=== PATIENT | male | born 1975 | race Caucasian/White ===

== ENCOUNTER 2018-02-17 07:02 | Inpatient (IN) | payer BC ==
[2018-02-17] MEDS ORDERED: Fentanyl 250 MCG/5 ML VIAL ONE (08:18)
[2018-02-17] MEDS ORDERED: Midazolam HCl 5 mg/5 ml Vial ONE (08:18)
[2018-02-17 08:45] LABS: #Eosinphils 0.1 thou/uL (0.0-0.7); #Lymphocytes 1.6 thou/uL (1.20-3.40); #Monocytes 0.4 thou/uL (0.11-0.59); #Neutrophils 3.4 thou/uL (1.40-6.50); %Basophils 0.9 % (0.0-1.0); %Eosinophils 1.1 % (0.0-10.0); %Lymphocytes 28.7 % (21.0-51.0); %Monocytes 7.8 % (0.0-10.0); %Neutrophils 61.5 % (42.0-75.0); Mean Corpuscular HGB CONC 34.6 g/dL (32.0-36.0); Mean Corpuscular Hemoglobin 30.4 pg (27.0-31.0); Mean Corpuscular Volume 88.1 fL (78.0-98.0); Mean Platelet Volume 9.4 fL (7.4-10.4); Platelet Count 171 thou/uL (130-400); RBC Distribution Width 11.7 % (11.5-14.5); Red Blood Cell (RBC) Count 4.92 mill/uL (4.70-6.10); White Blood Cell (WBC) Count 5.5 thou/uL (4.8-10.8)
[2018-02-17] MEDS ORDERED: Heparin 10,000 UNITS/1 ML VIAL 30,000 UNITS in Sodium Chloride 0.9% 1,000 ML FS SCH (08:45)
[2018-02-17 08:50] LABS: PTT 28.7 SEC (22.9-36.1); Prothrombin Time 13.7 SEC (12.0-14.7)
[2018-02-17 09:02] LABS: Anion Gap 11 mmol/L (10-20); BUN (Urea Nitrogen) 11 mg/dL (8.9-20.6); Calc. Creatinine Clearance 0 mL/min (70-130); Calcium 10.4 mg/dL (7.8-10.44); Carbon Dioxide 28 mmol/L (22-29); Chloride 104 mmol/L (98-107); Estimated GFR-MDRD 71; Glucose 115 mg/dL (70-105); Potassium 3.9 mmol/L (3.5-5.1); Sodium 139 mmol/L (136-145)
[2018-02-17] MEDS ORDERED: CEFAZOLIN/Water 2 GM/20 ML SYRINGE ONE (09:04)
[2018-02-17] MEDS ORDERED: Midazolam HCl 2 mg/2 ml Vial ONE ×2 (09:33→13:05)
--- NOTE | 2018-02-17 09:35 | RAD ---
CHEST TWO VIEW: History: Pre op for coronary artery bypass graft. Comparison: None. FINDINGS: Lungs are clear. No pneumothorax or effusion. Cardiac silhouette and mediastinal contours appear with in normal limits. No acute osseous abnormality. IMPRESSION: No acute intrathoracic abnormality. POS: [facility]
--- NOTE | 2018-02-17 13:02 | OP ---
DATE OF PROCEDURE: 02/17/2018 PREOPERATIVE DIAGNOSES: Coronary artery disease/status post-myocardial infarction/hyperlipidemia. POSTOPERATIVE DIAGNOSES: Coronary artery disease/status post-myocardial infarction/hyperlipidemia. PROCEDURE: Coronary artery bypass grafting x 2: 1) Left internal mammary artery to 2.0 mm distal LAD - good conduit and target. 2) Reverse saphenous vein to 3.0 mm OM - good conduit and target. SURGEON: Dr. Ata Calle and Dr. Stephon Cooney. ANESTHESIA: General endotracheal, Dr. Lisette Christianson. PUMP TIME: 37 minutes. CROSS-CLAMP TIME: Twenty minutes. LOW CORE TEMP: 32-degree Celsius. APPLIANCE INSTALLER: JR Chery. DRAINS: 24-Urdu chest tubes x2. DRIPS: None. TRANSFUSIONS: None. PROCEDURE IN DETAIL: After consent was obtained, the patient was brought to the operating room and placed in the supine position on the operating room table. Appropriate anesthetic monitor was placed and general endotracheal anesthesia induced. Chest, abdomen, and legs were prepped and draped in usual sterile fashion. Greater saphenous vein was harvested from the left ankle. Wounds irrigated and closed in layers. Median sternotomy was performed. Left internal mammary artery was harvested as a pedicle graft. The patient was systemically heparinized. Distal pedicle was divided and infused with papaverine. Thymic fat and pericardium were divided with electrocautery. Pericardial stay sutures were placed. Aortic and atrial cannulation was performed. After adequate heparinization, retrograde prime was performed. The patient was placed on cardiopulmonary bypass. Distal targets were marked. Aortic cross-clamp was applied and antegrade sanguinous cardioplegic arrest obtained. One liter of antegrade cold cardioplegia was given. Topical cold solution was used. Reverse saphenous vein was anastomosed to the OM in end to side fashion with running 7-0 Prolene suture. Anastomosis tested and was hemostatic. Mammary artery was brought through a window in the pericardium and anastomosed to the distal LAD in end to side fashion with running 7-0 Prolene suture. On release of mammary clamps, good hooding in the anastomosis and good distal flow. Pedicle screw with interrupted 6-0 Prolene suture. Cross-clamp was removed and partial occluding clamp placed. Saphenous vein was anastomosed to a punch site in the aorta with running 6-0 Prolene suture. Partial occluding clamp was removed and grafts deaired. Anastomoses were inspected for hemostasis, which was good. The patient was warmed and weaned from cardiopulmonary bypass. After resumption of sinus rhythm, good hemodynamics, and temperature greater than 36.5, bypass was discontinued. Transfusions were given. Protamine was administered. Decannulation was performed and pursestring sutures secured. 24-Urdu chest tubes were placed in the mediastinum. Vancomycin paste was placed on the sternal edges. After adequate hemostasis had been obtained, sternum was closed with #7 wire. Sternum was treated with platelet-rich plasma and wires twisted. Wounds were irrigated, treated with platelet-poor plasma, and closed in multiple layers. Dermabond was applied to all skin incisions. Needle, sponge, and instrument counts were all reported as correct at the end of the procedure. The patient tolerated the procedure well, and was transferred to the Intensive Care Unit in stable, but critical condition. LOUISE
[2018-02-17 13:05] LABS: pH, Arterial 7.42 (7.35-7.45)
[2018-02-17 13:06] LABS: ALV-art Gradient 137.825 (0-20); Actual Bicarbonate (HCO3a) 21.2 mEq/L (22-28); Base Excess (BEa) -2.6 mEq/L (-2.0 to +3.0); CO2 Tension 33.9 mmHg (35.0-45.0); Calcium, Ionized 1.2 mmol/L (1.12-1.30); Hemoglobin (Hb) 12.7 g/dL (14.0-18.0); Puncture Site ALINE
[2018-02-17] MEDS ORDERED: Promethazine HCl 25 MG/ML VIAL IM PRN (13:20)
[2018-02-17] MEDS ORDERED: Magnesium 2 GM/NS 0.9% 100 ML 2 GM in Premix Bag 1 BAG IVPB SCH (13:20)
[2018-02-17] MEDS ORDERED: Post-Op Insulin Drip Protocol IVPB ONE (13:20)
[2018-02-17] MEDS ORDERED: Bisacodyl 5 MG TAB PO PRN (13:20)
[2018-02-17] MEDS ORDERED: hydrALAZINE 20 MG/ML VIAL SLOW IVP PRN (13:20)
[2018-02-17] MEDS ORDERED: Potassium Chloride 20 MEQ/100 ML PREMIX BAG IVPB PRN (13:20)
[2018-02-17] MEDS ORDERED: Mag-Al 1200 mg/1200 mg/30 ML UDCUP PO PRN (13:20)
[2018-02-17] MEDS ORDERED: Guaifenesin DM 100-10/5 ML UDCUP PO PRN (13:20)
[2018-02-17] MEDS ORDERED: HYDROcodone/Acetaminophen 5/325 mg Tablet PO PRN ×2 (13:20)
[2018-02-17] MEDS ORDERED: Nitroglycerin 50 MG/250 ML BOT 250 ML IVPB PRN (13:20)
[2018-02-17] MEDS ORDERED: Acetaminophen 325 MG TAB PO PRN (13:20)
[2018-02-17] MEDS ORDERED: Fentanyl 100 MCG/2 ML VIAL SLOW IVP PRN (13:20)
[2018-02-17] MEDS ORDERED: Phenylephrine 10 MG/NS 250 ML 250 ML IVPB PRN (13:20)
[2018-02-17] MEDS ORDERED: Bisacodyl 10 MG SUPP PR PRN (13:20)
[2018-02-17 13:28] LABS: #Eosinphils 0.1 thou/uL (0.0-0.7); #Lymphocytes 2.4 thou/uL (1.20-3.40); #Monocytes 0.7 thou/uL (0.11-0.59); #Neutrophils 9.1 thou/uL (1.40-6.50); %Basophils 0.4 % (0.0-1.0); %Eosinophils 1.2 % (0.0-10.0); %Lymphocytes 19.3 % (21.0-51.0); %Monocytes 5.7 % (0.0-10.0); %Neutrophils 73.4 % (42.0-75.0); Hemoglobin 12.4 g/dL (14.0-18.0); Mean Corpuscular HGB CONC 35.8 g/dL (32.0-36.0); Mean Corpuscular Hemoglobin 31.5 pg (27.0-31.0); Mean Corpuscular Volume 88.2 fL (78.0-98.0); Mean Platelet Volume 9.8 fL (7.4-10.4); Platelet Count 140 thou/uL (130-400); RBC Distribution Width 11.7 % (11.5-14.5); Red Blood Cell (RBC) Count 3.93 mill/uL (4.70-6.10); White Blood Cell (WBC) Count 12.3 thou/uL (4.8-10.8)
[2018-02-17] MEDS ORDERED: Dextrose 5% in Water 1,000 ML IV PRN (13:31)
[2018-02-17] MEDS ORDERED: Dextrose 50% Abboject 50 ML SYRINGE SLOW IVP PRN (13:31)
[2018-02-17] MEDS ORDERED: Insulin Regular 300 UNITS/3 ML VIAL SC PRN (13:31)
[2018-02-17 13:34] LABS: INR-International Normal Ratio 1.4; PTT 26.3 SEC (22.9-36.1)
[2018-02-17] MEDS: Ondansetron HCl/PF 4 MG/2 ML Vial IVP PRN (13:36)
[2018-02-17] MEDS: D5 1/2 NS w/20 mEq KCL 1,000 ML IV SCH (13:36)
[2018-02-17 13:37] LABS: Anion Gap 9 mmol/L (10-20); BUN (Urea Nitrogen) 9 mg/dL (8.9-20.6); Calc. Creatinine Clearance 0 mL/min (70-130); Calcium 8.9 mg/dL (7.8-10.44); Carbon Dioxide 22 mmol/L (22-29); Chloride 110 mmol/L (98-107); Estimated GFR-MDRD Greater than 90; Glucose 132 mg/dL (70-105); Potassium 4.1 mmol/L (3.5-5.1); Sodium 137 mmol/L (136-145)
[2018-02-17] MEDS: Fentanyl 100 MCG/2 ML VIAL SLOW IVP PRN ×2 (15:07→19:28)
[2018-02-17] MEDS ORDERED: Protamine Sulfate 250 MG/25 ML VIAL ONE (15:19)
[2018-02-17] MEDS ORDERED: Heparin 5,000 UNITS/ML VIAL ONE (15:19)
[2018-02-17] MEDS ORDERED: Vecuronium 10 MG VIAL ONE (15:19)
[2018-02-17] MEDS ORDERED: Thrombin 5000 UNITS/5 ML VIAL ONE (15:19)
[2018-02-17] MEDS ORDERED: PROPOFOL 200 MG/20 ML VIAL ONE (15:19)
[2018-02-17] MEDS ORDERED: Mannitol 12.5 GM/50 ML ONE (15:19)
[2018-02-17] MEDS ORDERED: Aminocaproic Acid 5 GM/20 ML VIAL ONE (15:19)
[2018-02-17] MEDS ORDERED: Papaverine 60 MG/2 ML VIAL ONE (15:19)
[2018-02-17] MEDS ORDERED: Heparin 30,000 units/30 ml VIAL ONE (15:19)
[2018-02-17] MEDS ORDERED: Calcium Chloride 1 GM/10 ML Abboject SYRINGE ONE (15:19)
[2018-02-17] MEDS: DOPamine 400 MG/D5W 250 ML 250 ML IVPB PRN (15:23)
[2018-02-17 15:24] VITALS: BMI 35.5
--- NOTE | 2018-02-17 15:24 | RAD ---
RADIOGRAPH CHEST 1 VIEW: DATE: 02-17-18 TIME: 12:55 P.M. HISTORY: 42-year-old male status post open heart surgery. FINDINGS: The image is overexposed. There is no evidence of consolidation. The lateral costophrenic angles ar e sharp. Endotracheal tube distal tip overlying mid thoracic trachea. Sternotomy wires. Left basilar and left paramedian chest tubes. IMPRESSION: 1) Limited study. 2) No acute pulmonary findings. 3) Status post open heart surgery with tubes as mentioned above. genny POS: [facility]
[2018-02-17] MEDS: Ketorolac Tromethamine 30 MG/ML VIAL IVP SCH (16:23)
[2018-02-17] MEDS: CEFAZOLIN/Water 2 GM/20 ML SYRINGE SLOW IVP SCH (16:27)
[2018-02-17 17:19] LABS: Actual Bicarbonate (HCO3a) 20.1 mEq/L (22-28); Base Excess (BEa) -4.6 mEq/L (-2.0 to +3.0); CO2 Tension 36.4 mmHg (35.0-45.0); O2 Tension (PaO2) 142.6 mmHg (80.0-100.0); pH, Arterial 7.36 (7.35-7.45)
[2018-02-17 17:20] LABS: Calcium, Ionized 1.2 mmol/L (1.12-1.30); Puncture Site ALINE
[2018-02-17 18:54] LABS: Hemoglobin 12.7 g/dL (14.0-18.0)
[2018-02-17 19:11] LABS: Potassium 4.2 mmol/L (3.5-5.1)
[2018-02-17] MEDS: Famotidine/PF 20 mg/2ml Vial SLOW IVP SCH (20:17)
[2018-02-18] MEDS: Ketorolac Tromethamine 30 MG/ML VIAL IVP SCH ×5 (00:16→23:59)
[2018-02-18] MEDS: CEFAZOLIN/Water 2 GM/20 ML SYRINGE SLOW IVP SCH ×2 (00:16→08:23)
[2018-02-18] MEDS: Hetastarch 6% 500 ML 500 ML IVPB PRN ×2 (03:30→08:21)
[2018-02-18 04:33] LABS: #Lymphocytes 1.3 thou/uL (1.20-3.40); #Neutrophils 7.3 thou/uL (1.40-6.50); %Basophils 0.4 % (0.0-1.0); %Eosinophils 0.1 % (0.0-10.0); %Lymphocytes 13.1 % (21.0-51.0); %Monocytes 10.4 % (0.0-10.0); %Neutrophils 76.1 % (42.0-75.0); Hemoglobin 11.7 g/dL (14.0-18.0); Mean Corpuscular Hemoglobin 30.9 pg (27.0-31.0); Mean Corpuscular Volume 88.1 fL (78.0-98.0); Mean Platelet Volume 9.8 fL (7.4-10.4); Platelet Count 151 thou/uL (130-400); RBC Distribution Width 11.8 % (11.5-14.5); Red Blood Cell (RBC) Count 3.78 mill/uL (4.70-6.10); White Blood Cell (WBC) Count 9.6 thou/uL (4.8-10.8)
[2018-02-18 04:53] LABS: Anion Gap 12 mmol/L (10-20); BUN (Urea Nitrogen) 11 mg/dL (8.9-20.6); Calc. Creatinine Clearance 176 mL/min (70-130); Carbon Dioxide 22 mmol/L (22-29); Chloride 110 mmol/L (98-107); Estimated GFR-MDRD Greater than 90; Glucose 154 mg/dL (70-105); Sodium 140 mmol/L (136-145)
[2018-02-18] MEDS: Fentanyl 100 MCG/2 ML VIAL SLOW IVP PRN (05:15)
[2018-02-18] MEDS: DOPamine 400 MG/D5W 250 ML 250 ML IVPB PRN (05:21)
[2018-02-18] MEDS: Magnesium 2 GM/NS 0.9% 100 ML 2 GM in Premix Bag 1 BAG IVPB SCH (08:22)
[2018-02-18] MEDS: Ondansetron HCl/PF 4 MG/2 ML Vial IVP PRN (08:22)
[2018-02-18] MEDS: Famotidine/PF 20 mg/2ml Vial SLOW IVP SCH (08:22)
--- NOTE | 2018-02-18 08:53 | RAD ---
PORTABLE CHEST: HISTORY: Postop sternotomy. COMPARISON: 02/17/18. FINDINGS: The heart is mildly enlarged. Postop sternotomy change. A central line via the right subclavian crosses the midline with tips overlying the left upper chest, probably within the left brachiocephalic vein. This line is unchanged from yesterday. IMPRESSION: No acute lung process. POS: [facility]
[2018-02-18] MEDS ORDERED: Aspirin 325 MG TAB PO SCH (09:00)
--- NOTE | 2018-02-18 12:02 | EKG ---
Test Reason : PREOP Blood Pressure : / mmHG Vent. Rate : 082 BPM Atrial Rate : 082 BPM P-R Int : 166 ms QRS Dur : 090 ms QT Int : 366 ms P-R-T Axes : 074 049 032 degrees QTc Int : 427 ms Normal sinus rhythm Normal ECG No previous ECGs available Confirmed by LORETA RITCHIE ([id number]) on 02/18/2018 12:02:24 PM Referred By: Yaz HARVEY Confirmed By:LORETA RITCHIE
--- NOTE | 2018-02-18 12:08 | EKG ---
Test Reason : POST CABG Blood Pressure : / mmHG Vent. Rate : 061 BPM Atrial Rate : 061 BPM P-R Int : 162 ms QRS Dur : 090 ms QT Int : 434 ms P-R-T Axes : 076 062 022 degrees QTc Int : 436 ms Normal sinus rhythm Normal ECG Confirmed by LORETA RITCHIE ([id number]) on 02/18/2018 12:07:50 PM Referred By: Yaz HARVEY Confirmed By:LORETA RITCHIE
[2018-02-18] MEDS: D5 1/2 NS w/20 mEq KCL 1,000 ML IV SCH (12:58)
--- NOTE | 2018-02-18 14:13 | PQF ---
CLINICAL DOCUMENTATION IMPROVEMENT CLARIFICATION FORM: ICD-10 Updated PLEASE DO AN ADDENDUM TO THE PROGRESS NOTE WITH ANY DOCUMENTATION UPDATES OR ADDITIONS AND CARRY THROUGH TO DC SUMMARY. THANK YOU. DATE: 02/18/18 ATTN : DR. HARVEY Please exercise your independent, professional judgment in responding to the clarification form. Clinical indicators are provided on the bottom of this form for your review Please check appropriate box(s): [ ] Acute blood loss anemia [ ] Post-op anemia related to acute blood loss [ ] Anemia: [ ] Aplastic [ ] Nutritional [ ] Drug induced (specify) ___ [ ] Hemolytic [ ] Hereditary [ ] Acquired [ ] Autoimmune [ ] Non-autoimmune [ ] Enzyme disorder [ ] Chronic Anemia: [ ] Blood loss [ ] Hemolytic [ ] Simple [ ] Due to Vitamin B12 Deficiency [ ] Other [ ] Anemia of Chronic Disease (please specify) [ ] Anemia due to Neoplasm: [ ] Primary [ ] Secondary [ ] Anemia due to (please choose): [ ] Due to Chemotherapy [ ] Due to Radiotherapy [ ] Due to Immunotherapy [ ] Other diagnosis [ ] Unable to determine In addition, please specify: Present on Admission (POA): [ ] Yes [ ] No [ ] Unable to determine For continuity of documentation, please document condition throughout progress notes and discharge summary. Thank You. CLINICAL INDICATORS - SIGNS / SYMPTOMS / LABS HGN 02/17: 12.4 HGN 02/18: 11.7 RISKS: CABG 02/17 TREATMENT: SERIAL LABS TRANSFUSION OF PACKED CELLS I WILL NOT SIGN THIS THIS IS COMPLETE FOOLISHNESS> HGB IS 11.7 (This form is maintained as a part of the permanent medical record) 2014 [employer]. All Rights Reserved [email or web address] Office: [phone] LOUISE
[2018-02-18] MEDS ORDERED: Guaifenesin DM 100-10/5 ML UDCUP PO PRN (16:53)
[2018-02-18] MEDS ORDERED: Artificial Tear Sol 15 ML BOT EA EYE PRN (16:53)
[2018-02-18] MEDS ORDERED: Bisacodyl 5 MG TAB PO PRN (16:53)
[2018-02-18] MEDS ORDERED: Milk Of Magnesia 30 ML UDCUP PO PRN (16:53)
[2018-02-18] MEDS ORDERED: diphenhydrAMINE 25 MG CAP PO PRN (16:53)
[2018-02-18] MEDS ORDERED: Zolpidem Tartrate 5 MG TAB PO PRN (16:53)
[2018-02-18] MEDS ORDERED: Nitroglycerin 0.4 MG TAB (25 Tab Bottle) SL PRN (16:53)
[2018-02-18] MEDS ORDERED: Bisacodyl 10 MG SUPP PR PRN (16:53)
[2018-02-18] MEDS ORDERED: Mineral Oil ENEMA PR PRN (16:53)
[2018-02-18] MEDS ORDERED: Mag-Al 1200 mg/1200 mg/30 ML UDCUP PO PRN (16:53)
[2018-02-18] MEDS: Famotidine 20 MG TAB PO SCH (22:11)
[2018-02-19] MEDS: Ketorolac Tromethamine 30 MG/ML VIAL IVP SCH ×4 (06:03→23:56)
[2018-02-19] MEDS ORDERED: Furosemide 20 MG TAB PO SCH (06:30)
[2018-02-19] MEDS ORDERED: Potassium Chloride 20 MEQ TAB PO SCH (06:30)
[2018-02-19] MEDS: Magnesium 2 GM/NS 0.9% 100 ML 2 GM in Premix Bag 1 BAG IVPB SCH (08:58)
[2018-02-19] MEDS: Famotidine 20 MG TAB PO SCH ×2 (09:00→20:21)
[2018-02-19] MEDS: Aspirin 325 mg Enteric Coated Tablet PO SCH (09:00)
[2018-02-20] MEDS: Ketorolac Tromethamine 30 MG/ML VIAL IVP SCH (05:14)
--- NOTE | 2018-02-20 08:01 | DIS ---
DATE OF ADMISSION: 02/17/2018 DATE OF DISCHARGE: 02/20/2018 DIAGNOSES: 1. Coronary artery disease. 2. Hyperlipidemia. 3. Status post myocardial infarction. PROCEDURES: Coronary artery bypass grafting x2 - left internal mammary artery to LAD, reverse saphen ous vein to OM. DESCRIPTION OF HOSPITAL STAY: Mr. Cleaning was admitted electively for coronary artery bypass graftin . He is status post myocardial infarction approximately 3 weeks ago in [place] where he underwent c ardiac catheterization revealing an occluded LAD and approximately 60%-70% circumflex OM branch lesio n. He underwent bypass, has done well postoperatively. He has had no rhythm disturbances. He is be ing discharged home in good condition. He will follow up with me in 2 weeks and his home medical doc tor as per their schedule. DISCHARGE MEDICATIONS: Include, 1. Aspirin 325 mg every day. 2. Protonix 40 mg every day. 3. Atorvastatin 80 mg daily.
[2018-02-20] MEDS: Aspirin 325 mg Enteric Coated Tablet PO SCH (09:36)
[2018-02-20] MEDS: Famotidine 20 MG TAB PO SCH (09:36)
[2018-02-20 18:48] VITALS: TEMP 98.1
[2018-02-20 18:49] VITALS: BP 112/60
== END 2018-02-20 11:32 | disposition home or self-care (01) | DRG 235 ==
LOC: SURG A 08:07 → CCU 13:11 → 2NO 02-19 07:07
PROVIDERS: ADMIT Thoracic Surgery (Cardiothoracic Vascular Surgery); ATTEND Thoracic Surgery (Cardiothoracic Vascular Surgery)
PROC: 0210099 Bypass Coronary Artery, One Artery from Left Internal Mammary with Autologous Venous Tissue, Open Approach (ICD-10-PCS; principal; 2018-02-17)
PROC: 021009W Bypass Coronary Artery, One Artery from Aorta with Autologous Venous Tissue, Open Approach (ICD-10-PCS; 2018-02-17)
PROC: 5A1221Z Performance of Cardiac Output, Continuous (ICD-10-PCS; 2018-02-17)
PROC: 06BQ0ZZ Excision of Left Saphenous Vein, Open Approach (ICD-10-PCS; 2018-02-17)
DX: I25.10 Atherosclerotic heart disease of native coronary artery without angina pectoris (principal); I21.9 Acute myocardial infarction, unspecified; E78.2 Mixed hyperlipidemia; K21.9 Gastro-esophageal reflux disease without esophagitis; Z79.82 Long term (current) use of aspirin; Z79.02 Long term (current) use of antithrombotics/antiplatelets; Z79.899 Other long term (current) drug therapy
CPT/HCPCS: 36415; 36416; 36430; 71045; 71046; 80048; 82805; 85025; 85610; 85730; 86850; 86900; 86901; 93005; 93010; 93798; 94002; 94150; J1265; J1642; J1644; J1815; J1885; J2150; J2250; J2270; J2405; J2440; J2704; J2720; J3010; J3370; J3475; J3480; J7050; P9045; S0017; S0028